=== PATIENT | female | born 1990 | race Caucasian/White ===

== ENCOUNTER → 2018-08-24 | Outpatient (CLI) | payer OTHER ==
[~2018-08-24] MED LIST: ALLEGRA-D 24HR1 T24 PO; FLONASEALLERGY NS; PREDNISONE20 MG PO
== END ==
LOC: MHCPAIN 10:20
DX: G89.29 Other chronic pain (principal); M47.817 Spondylosis without myelopathy or radiculopathy, lumbosacral region; M53.3 Sacrococcygeal disorders, not elsewhere classified
CPT/HCPCS: G0463

== ENCOUNTER → 2018-10-19 | Outpatient (CLI) | payer OTHER | LOC: MHCPAIN 14:32 | DX: M79.18 Myalgia, other site (principal) | CPT/HCPCS: J1040 ==

== ENCOUNTER → 2018-12-28 | Outpatient (CLI) | payer OTHER | LOC: MHCPAIN 07:54 | DX: G89.29 Other chronic pain (principal); M47.817 Spondylosis without myelopathy or radiculopathy, lumbosacral region; M54.16 Radiculopathy, lumbar region; M53.3 Sacrococcygeal disorders, not elsewhere classified | CPT/HCPCS: G0463 ==